=== PATIENT | female | born 1995 ===

== ENCOUNTER 2024-02-17 12:48 | Day surgery (SDC) | payer OTHER ==
[2024-02-14 10:10] LABS: HEMATOCRIT 40.8 % (36.0-45.00); HEMOGLOBIN 13.6 g/dL (12.0-15.00); MEAN CELL VOLUME 81.2 fL (80.00-100.00); MEAN CORPUSCULAR HEMOGLOBIN 27.1 pg (27.00-32.0); MEAN CORPUSCULAR HGB CONC 33.3 g/dl (32.0-36.0); PLATELET COUNT 253 K/uL (150-450); RED BLOOD COUNT 5.03 M/uL (4.00-6.00); RED CELL DISTRIBUTION WIDTH 15.9 % (11.5-14.5)
[2024-02-14 10:32] LABS: INR 1.03; PARTIAL THROMBOPLASTIN TIME 32.6 SECONDS (22.0-34.0)
[2024-02-14 10:46] LABS: PROTHROMBIN TIME 11.2 SECONDS (9.0-11.5)
[~2024-02-17 12:48] MED LIST: MULTI FOR HER1 EAC2 PO; PROBIOTIC250 MG PO
[2024-02-17] MEDS ORDERED: POVIDONE-IODINE 118 ML BOTT TOP ONE (15:28)
[2024-02-17] MEDS ORDERED: AZITHROMYCIN 500 MG VIAL IV ONE (15:45)
[2024-02-17] MEDS ORDERED: METHYLERGONOVINE MALEATE 0.2 MG/ML AMPUL ONE (16:58)
[2024-02-17] MEDS ORDERED: ONDANSETRON HCL 2 MG/ML VIAL IV ONE (17:15)
[2024-02-17] MEDS ORDERED: KETOROLAC TROMETHAMINE 30 MG VIAL IU ONE (17:15)
== END 2024-02-17 19:35 | disposition home or self-care (01) ==
LOC: CIR.AMB 12:48
PROVIDERS: ATTEND Obstetrics & Gynecology
DX: O02.1 Missed abortion (principal)